=== PATIENT | female | born 2000 ===

== ENCOUNTER 2021-01-23 14:31 | Emergency (ER) | payer SELFPAY ==
[2021-01-23 14:35] VITALS: BP 141/82; PULSE 98; RESP 16; TEMP 35.7; O2SAT 100
--- NOTE | 2021-01-23 17:12 | PC.NURSE ---
pt not wanting to wait any longer. pt upright with steady gait. left with friend
== END 2021-01-23 21:34 | disposition left against medical advice (07) ==
PROVIDERS: Emergency Provider Nurse Practitioner
DX: Z53.21 Procedure and treatment not carried out due to patient leaving prior to being seen by health care provider (principal)
CPT/HCPCS: 99199